=== PATIENT | male | born 1955 | race Caucasian/White ===

== ENCOUNTER 2017-06-17 20:29 | Emergency (ER) | payer MEDICAID ==
[2017-06-17 21:00] VITALS: TEMP 97.5
--- NOTE | 2017-06-17 22:59 | C.PDOC ---
History Of Present Illness Patient is a 61 y/o male who presents to the ED with complaints of right shoulder and right rib pain. Patient reports to have slipped and fell 2 days ago with no pain initially; currently laying on adducted right adducted arm. Admits to attempting to alleviate pain by taking hot showers with worsening symptoms; massages icy hot to right shoulder. Admits pain worsens with cough and movement. No other physical complaints at this time. Time Seen by Provider: 06/17/17 22:16 Chief Complaint (Nursing): Chest Pain History Per: Patient History/Exam Limitations: no limitations Onset/Duration Of Symptoms: Days (2 days ago) Current Symptoms Are (Timing): Still Present Severity: Moderate Exacerbating Factors: Movement, Other (coughing) Recent travel outside of the [place]: No Past Medical History Reviewed: Historical Data, Nursing Documentation, Vital Signs Vital Signs: Last Vital Signs Temp 97.5 F L 06/17/17 23:00 Pulse 67 06/17/17 23:00 Resp 16 06/17/17 23:00 BP 120/74 06/17/17 23:00 Pulse Ox 96 06/18/17 00:15 - Medical History PMH: Asthma Surgical History: No Surg Hx Family History: States: No Known Family Hx - Social History Hx Alcohol Use: No Hx Substance Use: No Review Of Systems Constitutional: Negative for: Fever, Chills Musculoskeletal: Positive for: Shoulder Pain (right), Other (right rib pain) Physical Exam - Physical Exam Appears: Well, Non-toxic, No Acute Distress Skin: Normal Color, Warm, Dry, No Ecchymosis Head: Atraumatic, Normacephalic Oral Mucosa: Moist Gastrointestinal/Abdominal: Tenderness (right lateral intercostal rib tenderness ), Other (no deformity) Extremity: Tenderness (minor tenderness to ROM of right shoulder), No Deformity , Other (right shoulder normal, no effusion. ) Neurological/Psych: Oriented x3, Normal Speech, Normal Cognition ED Course And Treatment O2 Sat by Pulse Oximetry: 96 (room air) Pulse Ox Interpretation: Normal - Other Rad R shoulder X-Ray: Interpreted by Me (neg) R ribs/cxr X-Ray: Interpreted by Me (neg.) Progress Note: ice pack/motrin 600 PO Medical Decision Making Medical Decision Making: rib contusions/costochondritis, no fx initially painless after fall, less likely fx. EKG, right ribs/chest XR, right shoulder XR ordered. Motrin administered. Disposition Doctor Will See Patient In The: Office Counseled Patient/Family Regarding: Studies Performed, Diagnosis - Disposition Referrals: [facility] [Outside] [facility] [Outside] Pranay Samuels III, MD [Staff Provider] - Disposition: HOME/ ROUTINE Disposition Time: 22:59 Condition: GOOD Additional Instructions: x-rays of R shoulder, R ribs negative ice packs 1/2 hour per hour, nothing hot Motrin 400-600 mg every 6 hours as needed Follow-up in our outpatient Clinic as needed. Follow-up with Orthopedics/Dr. Samuels as needed. Instructions: Costochondritis (ED), Shoulder Sprain (ED) Forms: [employer] (Northern Irish) - Clinical Impression Clinical Impression: Contusion of shoulder, right, Contusion of rib on right side - Scribe Statement The provider has reviewed the documentation as recorded by the Scribe Aleyda Rajan All medical record entries made by the Scribe were at my direction and personally dictated by me. I have reviewed the chart and agree that the record accurately reflects my personal performance of the history, physical exam, medical decision making, and the department course for this patient. I have also personally directed, reviewed, and agree with the discharge instructions and disposition.
[2017-06-17 23:08] VITALS: BP 120/74; PULSE 67; RESP 16
[2017-06-18 00:16] VITALS: O2SAT 96
--- NOTE | 2017-06-18 09:12 | RAD ---
PROCEDURE: Radiographs of the Chest and Right Ribs. HISTORY: fall on ADDuced R arm 2D ago, mid-ax line COMPARISON: None available. TECHNIQUE: Frontal radiograph of the chest and multiple oblique radiographs of the right ribs were obtained. FINDINGS: RIGHT RIBS: No fracture or focal lesion visualized. LUNGS: Clear. PLEURA: No pneumothorax or pleural fluid. CARDIOVASCULAR: Normal sized heart. No pulmonary vascular congestion. OTHER FINDINGS: Thoracic spondylosis. IMPRESSION: Unremarkable radiographs of the chest and right ribs. No right rib fracture.
--- NOTE | 2017-06-18 09:22 | RAD ---
PROCEDURE: Radiographs of the Right Shoulder HISTORY: fall on ADDucted shoulder 2 days ago COMPARISON: No prior. FINDINGS: BONES: No fracture JOINTS: Glenohumeral and acromioclavicular osteoarthritis. SOFT TISSUES: Normal. OTHER FINDINGS: No cervical rib. Right lung apex clear. Right cervical apophyseal joint arthrosis. No calcific rotator cuff tendinopathy and/or calcific bursitis. IMPRESSION: Right acromioclavicular and right glenohumeral joint arthrosis. No fracture or dislocation
--- NOTE | 2017-06-18 18:21 | CARD ---
APPROVED REPORT EKG Measurement Heart [id number] <Conclusion> Normal sinus rhythm Left axis deviation Abnormal ECG
== END 2017-06-17 23:08 | disposition home or self-care (01) ==
LOC: C.ER 20:29
DX: S40.011A Contusion of right shoulder, initial encounter (principal); S20.211A Contusion of right front wall of thorax, initial encounter; W01.0XXA Fall on same level from slipping, tripping and stumbling without subsequent striking against object, initial encounter

== ENCOUNTER 2017-12-09 08:22 | Emergency (ER) | payer MEDICAID ==
[2017-12-09 08:28] VITALS: RESP 18; TEMP 98
[2017-12-09] MEDS ORDERED: Albuterol-Ipratrop 3 mg / 0.5 (3 ml) UD INH STA (08:46)
[2017-12-09 09:18] LABS: BASO # 0.1 K/uL (0.0-0.2); EOS % 11.9 % (0.0-4.0); HEMOGLOBIN 14.8 g/dL (12.0-18.0); LYMPH # 1.2 K/uL (1.0-4.3); LYMPH % 13.4 % (20.0-40.0); MEAN CELL VOLUME 82.5 fL (80.0-94.0); MEAN CORPUSCULAR HEMOGLOBIN 26.9 pg (27.0-31.0); MEAN CORPUSCULAR HGB CONC 32.6 g/dL (33.0-37.0); MEAN PLATELET VOLUME 7.7 fL (7.2-11.7); MONO # 0.9 K/uL (0.0-0.8); NEUT # 5.6 K/uL (1.8-7.0); NEUT % 63.7 % (50.0-75.0); NRBC % 0.1 % (0.0-2.0); RBC 5.52 Mil/uL (4.40-5.90); RED CELL DISTRIBUTION WIDTH 14.6 % (11.5-14.5); WHITE BLOOD COUNT 8.8 K/uL (4.8-10.8)
--- NOTE | 2017-12-09 09:26 | RAD ---
PROCEDURE: Radiographs of the Right Shoulder HISTORY: Pain COMPARISON: No prior. FINDINGS: BONES: Bone alignment and mineralization are normal. There is no acute displaced fracture or bone destruction. JOINTS: There is mild degenerative osteoarthrosis in the acromioclavicular and glenohumeral joints. SOFT TISSUES: Normal. OTHER FINDINGS: None. IMPRESSION: No acute fracture or dislocation. Mild degenerative osteoarthrosis in the acromioclavicular and glenohumeral joints.
--- NOTE | 2017-12-09 09:27 | RAD ---
HISTORY: COMPARISON: 06/17/2017. TECHNIQUE: Chest PA and lateral FINDINGS: LINES AND TUBES: None. LUNG AND PLEURA: The lungs are well inflated and clear. No pleural effusion or pneumothorax. HEART AND MEDIASTINUM: The heart is not enlarged. The hilar and mediastinal contours are within normal limits. SKELETAL STRUCTURES: The bony structures are within normal limits for the patient's age. VISUALIZED UPPER ABDOMEN: Normal. OTHER FINDINGS: None. IMPRESSION: No active pulmonary disease.
[2017-12-09] MEDS ORDERED: Albuterol-Ipratrop 3 mg / 0.5 (3 ml) UD ONE (09:29)
[2017-12-09 09:32] LABS: ALBUMIN 3.5 g/dL (3.5-5.0); ALT/SGPT 28 U/L (21-72); AST/SGOT 26 U/L (17-59); BLOOD UREA NITROGEN 14 mg/dL (9-20); CALCIUM 8.6 mg/dl (8.6-10.4); GFR AFRICAN-AMERICAN > 60; GFR NON-AFRICAN AMERICAN > 60
[2017-12-09 09:46] LABS: B-TYPE NATRIURETIC PEPTIDE 74.5 pg/mL (0-900)
--- NOTE | 2017-12-09 10:00 | C.PDOC ---
History Of Present Illness 62 y/o male, w/ PMhx of asthma, presents to the ER complaining of shortness of breath and sinus congestion which has been present for the past 1 day. Patient is also complaining of right shoulder pain from a previous injury. Patient states that the pain is worse with movement. Denies having chest pain, cough, fever, and chills. Time Seen by Provider: 12/09/17 08:36 Chief Complaint (Nursing): Shortness Of Breath History Per: Patient History/Exam Limitations: no limitations Onset/Duration Of Symptoms: Days Current Symptoms Are (Timing): Still Present Severity: Moderate Past Medical History Reviewed: Historical Data, Nursing Documentation, Vital Signs Vital Signs: Last Vital Signs Temp 98 F 12/09/17 10:25 Pulse 78 12/09/17 10:25 Resp 18 12/09/17 10:25 BP 116/72 12/09/17 10:25 Pulse Ox 97 12/09/17 11:41 - Medical History PMH: Asthma Other Surgeries: Hx of surgeries Family History: States: No Known Family Hx - Social History Hx Alcohol Use: No Hx Substance Use: No Review Of Systems Except As Marked, All Systems Reviewed And Found Negative. Constitutional: Negative for: Fever, Chills Cardiovascular: Negative for: Chest Pain Respiratory: Positive for: Shortness of Breath. Negative for: Cough Musculoskeletal: Positive for: Shoulder Pain (right shoulder pain) Physical Exam - Physical Exam Appears: Non-toxic, No Acute Distress Skin: Normal Color, Warm, Dry Head: Atraumatic, Normacephalic Eye(s): bilateral: Normal Inspection Nose: Normal Oral Mucosa: Moist Neck: Supple Chest: Symmetrical Cardiovascular: Rhythm Regular Respiratory: Decreased Breath Sounds (diminished breath sounds at bilateral bases), No Rales, No Rhonchi Gastrointestinal/Abdominal: Normal Exam, Bowel Sounds, Soft, No Tenderness, No Guarding, No Rebound Extremity: Normal ROM, Tenderness (tenderness to anterior aspect of right shoulder) Neurological/Psych: Oriented x3, Normal Speech ED Course And Treatment - Laboratory Results Result Diagrams: 12/09/17 09:13 12/09/17 09:13 ECG: Interpreted By Me, Viewed By Me ECG Rhythm: Sinus Rhythm Interpretation Of ECG: NSR with left axis deviation, and no ST/ T wave abnormalities Rate From EC O2 Sat by Pulse Oximetry: 97 (RA) Pulse Ox Interpretation: Normal - Radiology CXR: Interpreted by Me, Viewed By Me CXR Interpretation: Yes: No Acute Disease - Other Rad X-Ray - Right Shoulder X-Ray: Viewed By Me, Read By Radiologist Interpretation: PROCEDURE: Radiographs of the Right Shoulder. HISTORY: Pain. COMPARISON: No prior. FINDINGS: BONES: Bone alignment and mineralization are normal. There is no acute displaced fracture or bone destruction. JOINTS: There is mild degenerative osteoarthrosis in the acromioclavicular and glenohumeral joints. SOFT TISSUES: Normal. OTHER FINDINGS: None. IMPRESSION : No acute fracture or dislocation. Mild degenerative osteoarthrosis in the acromioclavicular and glenohumeral joints. Medical Decision Making Medical Decision Making: Assessment: Asthma, Shoulder Pain Plan: --Labs --ECG --CXR -- X- Ray - Right Shoulder --Toradol IV --Prednisone PO Updates: On reassessment,patient states improvement of symptoms. Patient has been discharged and instructed to follow up with PMD in 2 days and return to ER if symptoms worsen. Disposition Counseled Patient/Family Regarding: Studies Performed, Diagnosis, Need For Followup, Rx Given - Disposition Referrals: [facility] [Outside] Disposition: HOME/ ROUTINE Disposition Time: 09:58 Condition: STABLE Additional Instructions: follow up with medical clinic in 2 days call to make an appointment take medications as prescribed return to ER if symptoms worsens or progress Prescriptions: Albuterol HFA [Ventolin HFA 90 mcg/actuation (8 g)] 2 puff IH [id number] #1 puff Loratadine [Claritin] 10 mg PO DAILY PRN #15 tab PRN Reason: Other Naproxen [Naprosyn] 500 mg PO BID PRN #16 tab PRN Reason: Pain, Moderate (4-7) predniSONE [predniSONE Tab] 50 mg PO DAILY #4 tab Instructions: Asthma in Adults, Joint Pain Forms: General Discharge Instructions, [facility] (Lithuanian), Work Excuse - Clinical Impression Clinical Impression: Asthma, Shoulder pain - Scribe Statement The provider has reviewed the documentation as recorded by the Meme Hayes Provider Attestation: All medical record entries made by the Scribe were at my direction and personally dictated by me. I have reviewed the chart and agree that the record accurately reflects my personal performance of the history, physical exam, medical decision making, and the department course for this patient. I have also personally directed, reviewed, and agree with the discharge instructions and disposition.
[2017-12-09 10:25] VITALS: BP 116/72; PULSE 78
[2017-12-09 11:29] VITALS: O2SAT 97
--- NOTE | 2017-12-12 12:24 | CARD ---
APPROVED REPORT EKG Measurement Heart [id number] <Conclusion> Normal sinus rhythm Left axis deviation Abnormal ECG
== END 2017-12-09 10:25 | disposition home or self-care (01) ==
LOC: C.ER 08:22
DX: J45.909 Unspecified asthma, uncomplicated (principal); M25.511 Pain in right shoulder
CPT/HCPCS: 71046; 73030; 80053; 83880; 84484; 85025; 85378; 96374; 99284; J1885

== ENCOUNTER 2018-11-24 14:46 | Emergency (ER) | payer MEDICAID ==
[2018-11-24 15:01] VITALS: TEMP 98.1; O2SAT 98
--- NOTE | 2018-11-24 16:17 | C.PDOC ---
History Of Present Illness 63 y/o male brought to ed by partner; she sts pt has had cough x 3 months. was recently released from incarceration; denies fevers, chills, night sweats, hemoptysis, weight loss. pt is not a smoker. while incarcerated, pt had anesthesia to pull a tooth [place] [facility] details unclear. pt denies wheezing now. pt also c/o itchy rash to both hands for 2 weeks after working with plants and weeding. Time Seen by Provider: 11/24/18 15:31 Chief Complaint (Nursing): Cough, Cold, Congestion History Per: Patient, Family History/Exam Limitations: no limitations Onset/Duration Of Symptoms: Days (90) Severity: Mild Past Medical History Reviewed: Historical Data, Nursing Documentation, Vital Signs Vital Signs: Last Vital Signs Temp 98.1 F 11/24/18 14:58 Pulse 73 11/24/18 14:58 Resp 20 11/24/18 14:58 BP 123/73 11/24/18 14:58 Pulse Ox 98 11/24/18 14:58 Primary Care Provider: Non [facility] Provider, - Medical History PMH: Asthma Family History: States: Unknown Family Hx - Social History Hx Tobacco Use: No Hx Alcohol Use: No Hx Substance Use: No Review Of Systems Constitutional: Negative for: Fever, Chills, Sweats Respiratory: Positive for: Cough. Negative for: Shortness of Breath, Hem optysis, Pleuritic Pain, Wheezing Gastrointestinal: Negative for: Vomiting, Abdominal Pain Skin: Positive for: Lesions (to hands one-2 weeks), Other Neurological: Negative for: Weakness, Numbness Physical Exam - Physical Exam Appears: Non-toxic, No Acute Distress Skin: Other (excoriations to the bilateral hands with scattered macules, papules, and vescicles that are tender to palpation ) Head: Atraumatic, Normacephalic Eye(s): bilateral: Normal Inspection Ear(s): Bilateral: Normal Nose: Normal, No Flaring Oral Mucosa: Moist Throat: Normal, No Erythema, No Exudate Neck: Normal ROM, Supple Chest: Symmetrical, No Deformity Cardiovascular: Rhythm Regular, No Murmur Respiratory: No Decreased Breath Sounds, No Accessory Muscle Use, No Rales, No Rhonchi, No Wheezing Extremity: Capillary Refill <2 Sec (< 2 seconds) Pulses: Left Radial: Normal, Right Radial: Normal Neurological/Psych: Oriented x3, Normal Speech, Normal Cognition ED Course And Treatment O2 Sat by Pulse Oximetry: 98 (in RA) Pulse Ox Interpretation: Normal Medical Decision Making Medical Decision Making: Impression: 63 year old male presents to ED with complaint of cough for last 3 months. wet read cxr neg. Initial Plan: Claritin and Prednisone ordered for patient. CXR ordered for patient. Disposition Counseled Patient/Family Regarding: Studies Performed, Diagnosis, Need For Followup, Rx Given - Disposition Referrals: [facility] [Outside] [facility] [Outside] Disposition: HOME/ ROUTINE Disposition Time: 17:14 Condition: GOOD Additional Instructions: Use inhaler when coughing is bad, 2 puffs every 6-8 hours. You need to follow up with medical doctor for ocugh and rash-= call nursing clerk service for assistance making an appointment. Take prednisone and claritin as prescribed. Wear work gloves when in garden. Prescriptions: Albuterol HFA [Ventolin HFA 90 mcg/actuation (8 g)] 2 puff IH Q6 #1 inhaler Loratadine [Claritin] 10 mg PO DAILY #20 tab predniSONE [predniSONE Tab] 2 tab PO DAILY #8 tab Instructions: Skin Rash (DC), Upper Respiratory Infection (ED) Forms: [facility] (Uzbek), General Discharge Instructions - Clinical Impression Clinical Impression: Rash, Upper respiratory disease - PA / FILM PRODUCER / Resident Statement MD/DO has reviewed & agrees with the documentation as recorded. (Maricarmen Jorgensen) - Scribe Statement The provider has reviewed the documentation as recorded by the Scribe (Maricarmen Jorgensen) All medical record entries made by the Scribe were at my direction and personally dictated by me. I have reviewed the chart and agree that the record accurately reflects my personal performance of the history, physical exam, medical decision making, and the department course for this patient. I have also personally directed, reviewed, and agree with the discharge instructions and disposition.
--- NOTE | 2018-11-24 17:19 | RAD ---
Date of service: 11/24/2018 HISTORY: cough x 3 months COMPARISON: 12/09/2017 TECHNIQUE: Chest PA and lateral views FINDINGS: LUNGS: No active pulmonary disease. PLEURA: No significant pleural effusion identified. No pneumothorax apparent. CARDIOVASCULAR: No aortic atherosclerotic calcification present. Normal cardiac size. No pulmonary vascular congestion. OSSEOUS STRUCTURES: No significant abnormalities. VISUALIZED UPPER ABDOMEN: Normal. OTHER FINDINGS: None. IMPRESSION: No active disease.
[2018-11-24 17:27] VITALS: BP 139/81; PULSE 70; RESP 16
== END 2018-11-24 17:26 | disposition home or self-care (01) ==
LOC: C.ER 14:46
DX: J06.9 Acute upper respiratory infection, unspecified (principal); R21 Rash and other nonspecific skin eruption